=== PATIENT | male | born 1935 | race Caucasian/White ===

== ENCOUNTER 2019-04-20 14:55 | Emergency (ER) | payer MEDICARE ==
[~2019-04-20] VITALS: Ht 188 cm; Wt 90.0 kg
[2019-04-20 15:27] LABS: BASOPHILS # (AUTO) 0.09 x10^3/uL (0-0.1); BASOPHILS % (AUTO) 1 % (0-1); EOSINOPHILS # (AUTO) 0.16 x10^3/uL (0-0.4); EOSINOPHILS % (AUTO) 3 % (1-7); LYMPHOCYTES % (AUTO) 22 % (22-44); MD NO; MONOCYTES # (AUTO) 0.53 x10^3/uL (0.2-0.8); MONOCYTES % (AUTO) 8 % (2-9); NEUTROPHILS # (AUTO) 4.15 x10^3/uL (1.8-6.8); NEUTROPHILS % (AUTO) 66 % (42-75); PLATELET COUNT 190 x10^3/uL (130-400)
--- NOTE | 2019-04-20 15:30 | NUR ---
PT AT [facility] AND STARTED HAVING AN EPISODE THAT HE AND FAMILY CALL SLEEPING SEIZURE. PT HAD GLAZED LOOK IN EYES THAT NORMALLY LASTS LESS THAN A FEW MINUTES. THIS TIME LASTED LONGER WHERE PT CLOSED HIS EYES AND SEEMED TO BE SLEEPING. LOW BP UPON ARRIVAL OF MEDICS. BP RESPONDED WHEN LAID FLAT AND GIVEN FLUID BOLUS. PT NOW CONVERSING WITH FAMILY AND FRIEND, NO DISTRESS
[2019-04-20 15:34] LABS: ANION GAP 7 mmol/L (5-15); CALCIUM 7.8 mg/dL (8.5-10.1); CHLORIDE 111 mmol/L (98-107)
[2019-04-20 16:22] VITALS: BP 152/87
[2019-04-21 16:45] LABS: CREATININE 2.56 mg/dL (0.7-1.3)
[2019-04-21 16:46] LABS: MEAN CORPUSCULAR HEMOGLOBIN 30.5 pg (27.5-34.5); MEAN CORPUSCULAR HGB CONC 32.5 g/dL (33.2-36.2); MEAN CORPUSCULAR VOLUME 93.8 fL (81-97); RED BLOOD COUNT 3.74 x10^6/uL (4.38-5.82); RED CELL DISTRIBUTION WIDTH 15.5 % (9.4-14.8)
== END 2019-04-20 16:25 | disposition home or self-care (01) ==
LOC: EDSEX 14:55 → ED 16:10
DX: G40.909 Epilepsy, unspecified, not intractable, without status epilepticus (principal); E83.51 Hypocalcemia; N18.9 Chronic kidney disease, unspecified; G89.29 Other chronic pain; Z87.891 Personal history of nicotine dependence
CPT/HCPCS: 36415; 80048; 83735; 85025; 99283